=== PATIENT | male | born 1950 | race Caucasian/White ===

== ENCOUNTER 2017-04-11 10:47 | Emergency (ER) | payer OTHER ==
[~2017-04-11] VITALS: Ht 160 cm; Wt 84.4 kg
[~2017-04-11 10:47] MED LIST: APAP500 PO; ASPIR 8181 MG PO; CARDURA4 MG PO; FISH OIL 1,001000 M2 PO; LISINOPRIL20 MG PO; METFORMIN HCL500 MG PO; NOVOLIN N100 UNIT/1 SQ; NOVOLIN R100 UNIT/1 SUBQ; PROSCAR 5MG TABL5 M1 PO; ZOCOR20 MG PO
[2017-04-11 11:32] LABS: URINE BLOOD 3+ (Negative); URINE COLOR RED; URINE GLUCOSE-RANDOM* TRACE (Negative); URINE KETONES TRACE (Negative); URINE PROTEIN (DIPSTICK) 3+ (Negative); URINE SPECIFIC GRAVITY 1.025 (1.003-1.035)
[2017-04-11 11:33] LABS: URINE LEUKOCYTES-REFLEX TRACE (Negative)
[2017-04-11 11:39] LABS: ICTOTEST (BILI CONFIRMATORY) Negative (Negative); URINE BILIRUBIN NEGATIVE (Negative)
[2017-04-11 11:51] LABS: CASTS None Seen /LPF (None Seen); CRYSTALS None Seen /LPF (None Seen); SQUAMOUS None Seen /LPF (0-3); URINE RBC >20 Many /HPF (0-2); URINE WBC-REFLEX >25 Many /HPF (0-5)
[2017-04-11 12:22] LABS: HEMATOCRIT 43.8 % (42.0-52.0); HEMOGLOBIN 14.4 gm/dL (14.0-18.0); MCH 28.4 pg (26.0-34.0); MCHC 32.9 g/dL (28.0-37.0); MCV 86.4 fL (80.0-100.0); PLATELET COUNT 193 thou/uL (150-400); RBC 5.07 mil/uL (4.50-6.00); WBC 16.8 thou/uL (4.0-11.0)
[2017-04-11 12:29] LABS: MANUAL DIFF YES
[2017-04-11 12:38] LABS: CALCIUM 9.8 mg/dL (8.5-10.1); CREATININE 0.9 mg/dL (0.7-1.3); POTASSIUM 4.5 mmol/L (3.5-5.1)
[2017-04-11 13:01] LABS: ANISOCYTOSIS 1+; TOTAL CELL COUNT 100
[2017-04-11 13:17] LABS: APTT 23.8 Seconds (24.5-32.8); PROTIME 9.8 Seconds (9.3-11.4)
[2017-04-11] MEDS ORDERED: ZOFRAN ODT4 MG PO (13:27)
[2017-04-11] MEDS ORDERED: CIPROFLOXACIN500 M1 PO (13:27)
== END 2017-04-11 13:53 | disposition home or self-care (01) ==
LOC: ER 10:47
PROVIDERS: Emergency Medicine
DX: N39.0 Urinary tract infection, site not specified (principal); I10 Essential (primary) hypertension; J45.909 Unspecified asthma, uncomplicated; K21.9 Gastro-esophageal reflux disease without esophagitis; E11.9 Type 2 diabetes mellitus without complications; M19.90 Unspecified osteoarthritis, unspecified site; Z79.4 Long term (current) use of insulin; Z79.82 Long term (current) use of aspirin